=== PATIENT | male | born 1975 | race Caucasian/White ===

== ENCOUNTER 2017-08-12 19:06 | Emergency (ER) | payer MEDICAID ==
[~2017-08-12] VITALS: Ht 170.2 cm; Wt 92.8 kg
[~2017-08-12 19:06] MED LIST: HYDR-3240 PO; OMEP20TA62 PO; ONDA4TAB7 PO; SUCR1TAB PO
[2017-08-12] MEDS ORDERED: ASPIRIN 81 MG TABLET CHEW PO ONE (19:30)
[2017-08-12] MEDS ORDERED: HYDROcodone/APAP 5/325 TABLET ONE (19:55)
[2017-08-12] MEDS ORDERED: KETOROLAC 30 MG/1 ML ONE (19:56)
[2017-08-12 19:58] LABS: HEMATOCRIT 45.6 % (39.2-51.8); HEMOGLOBIN 15.6 g/dL (13.7-18.0); WHITE BLOOD COUNT 7.3 x10^3/uL (3.4-10)
[2017-08-12] MEDS ORDERED: KETOROLAC 60 MG/2 ML IM ONE (20:00)
[2017-08-12] MEDS ORDERED: HYDROcodone/APAP 5/325 TABLET PO ONE (20:00)
[2017-08-12 20:09] VITALS: BP 127/73
[2017-08-12 20:09] LABS: BLOOD UREA NITROGEN 12 mg/dL (7-18)
[2017-08-12 20:16] LABS: ASPARTATE AMINO TRANSFERASE 20 U/L (15-37)
[2017-08-12 20:19] LABS: IS PT STATUS REG ER OR PRE ER? YES
== END 2017-08-12 21:07 | disposition home or self-care (01) ==
LOC: ED 20:45
DX: K40.90 Unilateral inguinal hernia, without obstruction or gangrene, not specified as recurrent (principal); M54.32 Sciatica, left side
CPT/HCPCS: 36415; 74176; 80053; 84484; 85025; 93005; 96372; 99285; J1885

== ENCOUNTER 2017-10-15 22:47 | Emergency (ER) | payer MEDICAID | END 2017-10-16 00:57 | disposition left against medical advice (07) | LOC: ED 10-16 00:51 | DX: Z53.21 Procedure and treatment not carried out due to patient leaving prior to being seen by health care provider (principal) ==